=== PATIENT | female | born 1935 | race Caucasian/White ===

== ENCOUNTER 2020-02-17 02:50 | Emergency (ER) | payer OTHER ==
[~2020-02-17] VITALS: Ht 167.6 cm; Wt 77.1 kg
[2020-02-17] MEDS ORDERED: LIDOCAINE VISCOUS 2% 15ML UD MT ONE (03:15)
[2020-02-17 04:36] LABS: Basophils # (auto) 0.1 10 ^3/uL (0-0.2); Basophils % (auto) 0.4 % (0.0-2.0); Eosinophils # (auto) 0.1 10 ^3/uL (0-0.8); Eosinophils % (auto) 1.1 % (0.0-7.0); Hematocrit 36.1 % (36.0-46.0); Hemoglobin 11.9 g/dL (12.2-16.2); Lymphocytes # (auto) 1.8 10 ^3/uL (0.4-5.4); Lymphocytes % (auto) 14.5 % (10.0-50.0); Mean Corpuscular Hemoglobin 29.6 pg (28.0-32.0); Mean Corpuscular Hgb Conc. 32.8 g/dL (32.0-36.0); Mean Corpuscular Volume 90.1 fL (80.0-100.0); Monocytes # (auto) 0.9 10 ^3/uL (0-1.3); Neutrophils # (auto) 9.7 10 ^3/uL (1.6-8.6); Nucleated Red Blood Cells % 0.1 %; Red Blood Cells 4.01 10^6/uL (4.0-5.20); Red Cell Distribution Width 16.3 % (11.8-14.3); White Blood Cell 12.6 10^3/uL (4.4-10.8)
[2020-02-17 04:43] LABS: INR 1.05 (0.9-1.15)
[2020-02-17 05:07] VITALS: BP 135/51
[2020-02-17] MEDS ORDERED: SODIUM CHLORIDE 0.9% 500 ML IV ONE (05:15)
[2020-02-17 07:03] LABS: Hemoglobin 10.7 g/dL (12.2-16.2)
== END 2020-02-17 09:35 | disposition home or self-care (01) ==
LOC: EDBD 02:50 → ER 02:55
DX: R04.0 Epistaxis (principal); E11.9 Type 2 diabetes mellitus without complications; I10 Essential (primary) hypertension
CPT/HCPCS: 30901; 36415; 85014; 85018; 85025; 85610; 85730; 96360; 96361; 99284; J7030

== ENCOUNTER 2020-02-17 21:37 | Emergency (ER) | payer OTHER ==
[~2020-02-17] VITALS: Ht 170.2 cm; Wt 83.9 kg
[2020-02-17 22:40] LABS: Hematocrit 30.2 % (36.0-46.0); Hemoglobin 10.5 g/dL (12.2-16.2)
[2020-02-18] MEDS ORDERED: LIDOCAINE VISCOUS 2% 15ML UD MT ONE (00:30)
[2020-02-18 02:05] LABS: Hematocrit 29.6 % (36.0-46.0); Hemoglobin 9.6 g/dL (12.2-16.2)
[2020-02-18 02:19] LABS: INR 1.03 (0.9-1.15); Partial Thromboplastin Time 28.7 sec (23.0-31.2)
[2020-02-19 09:48] LABS: Albumin 2.8 g/dL (3.4-5.0); Calcium 8.6 mg/dL (8.5-10.1); Potassium 4.1 mmol/L (3.5-5.1)
[2020-02-19 09:51] LABS: Hemoglobin 9.1 g/dL (12.2-16.2); Mean Corpuscular Hemoglobin 29.3 pg (28.0-32.0); Red Blood Cells 3.11 10^6/uL (4.0-5.20)
[2020-02-19 09:53] LABS: Hematocrit 27.7 % (36.0-46.0); Mean Corpuscular Hgb Conc. 32.9 g/dL (32.0-36.0); Red Cell Distribution Width 16.4 % (11.8-14.3); White Blood Cell 15.2 10^3/uL (4.4-10.8)
[2020-02-19 09:54] LABS: BUN/Creatinine Ratio 25.4; Bilirubin, Total 0.4 mg/dL (0.2-1.0)
[2020-02-19 09:57] LABS: Band Neutrophils % (manual) 0; Basophils % (manual) 0 (0.0-2.0); Blast Cells 0; Eosinophils % (manual) 0 (0-7); Metamyelocytes % 0; Myelocytes % 0; Promyelocytes % 0; Reactive Lymphocytes 0
[2020-02-19 09:59] LABS: Partial Thromboplastin Time 27.5 sec (23.0-31.2)
[2020-02-19 12:07] LABS: Lymphocytes % (manual) 14 (10.0-50.0); Monocytes % (manual) 6 (0-12)
[2020-02-19] MEDS ORDERED: LIDOCAINE VISCOUS 2% 15ML UD PO ONE (15:30)
[2020-02-19 16:00] VITALS: BP 145/74
== END 2020-02-19 18:10 | disposition home or self-care (01) ==
LOC: ER 21:39
DX: R04.0 Epistaxis (principal); E11.9 Type 2 diabetes mellitus without complications; I10 Essential (primary) hypertension
CPT/HCPCS: 30905; 36415; 80053; 84484; 85007; 85014; 85018; 85027; 85610; 85730; 86850; 86900; 86901; 93005